=== PATIENT | male | born 1990 | race Hispanic/Latino ===

== ENCOUNTER 2022-02-21 18:53 | Emergency (ER) | payer SELFPAY ==
[2022-02-21] MEDS ORDERED: Dexamethasone 10 MG/ML VIAL ONE (19:34)
[2022-02-21] MEDS ORDERED: methylPREDNISolone Sod Succ/PF 125 MG/2 ML VIAL ONE (20:07)
[2022-02-21] MEDS ORDERED: diphenhydrAMINE 50 MG/ML VIAL ONE (20:07)
[2022-02-21] MEDS ORDERED: EPINEPHrine 1 MG/ML AMP ONE (20:07)
[2022-02-21] MEDS ORDERED: Famotidine/PF 20 mg/2ml Vial ONE (20:08)
== END 2022-02-21 19:54 | disposition home or self-care (01) ==
LOC: CSHERS 18:53
DX: J06.9 Acute upper respiratory infection, unspecified (principal); Z20.822 Contact with and (suspected) exposure to COVID-19
CPT/HCPCS: 87804; 99283; J0171; J1100; J1200; J2930; S0028; U0003; U0005